=== PATIENT | female | born 1980 | race Caucasian/White ===

== ENCOUNTER 2019-04-30 05:39 | Inpatient (IN) | payer OTHER ==
[~2019-04-30] VITALS: Ht 152.4 cm; Wt 71.2 kg
[2019-04-30] MEDS ORDERED: DEXT 5%/LR + PITOCIN 20UNITS/L 1,000 ML IV ONE (06:39)
[2019-04-30] MEDS ORDERED: DEXT 5%/LR + PITOCIN 20UNITS/L 1,000 ML IV SCH (06:58)
[2019-04-30] MEDS ORDERED: GLYCERIN/WITCH HAZEL LEAF MEDICATED PAD TOP PRN (07:00)
[2019-04-30] MEDS ORDERED: BISACODYL 10MG SUPP PR PRN (07:00)
[2019-04-30] MEDS ORDERED: HEMORRHOIDAL SUPP PR PRN (07:00)
[2019-04-30] MEDS ORDERED: ACETAMINOPHEN WITH CODEINE 300/30MG TABLET PO PRN ×2 (07:00)
[2019-04-30] MEDS ORDERED: IBUPROFEN 400MG TABLET PO PRN (07:00)
[2019-04-30] MEDS ORDERED: IBUPROFEN 800MG TABLET PO PRN (07:00)
[2019-04-30 09:10] LABS: BASOPHILS % 0.6 % (0.0-2.0); EOSINOPHILS % 0.5 % (0.0-5.0); HEMOGLOBIN. 13.4 g/dL (12.0-16.0); MEAN CORPUSCULAR HEMOGLOBIN 31.8 pg (28.0-32.0); MEAN PLATELET VOLUME 10.9 fl (7.4-10.4); NEUTROPHILS % 77.9 % (40.0-76.0); PLATELET 140 x1000/uL (130-400); RED BLOOD CELL COUNT 4.22 mill/uL (4.2-5.4)
[2019-04-30 10:45] LABS: CLARITY URINE TURBID (CLEAR); COLOR URINE RED (YELLOW); KETONES URINE 1+ (NEGATIVE); LEUKOCYTE ESTERASE URINE 2+ (NEGATIVE); NITRITE URINE POSITIVE (NEGATIVE); OCCULT BLOOD URINE 3+ (NEGATIVE); PROTEIN URINE 2+ (NEGATIVE); SPECIFIC GRAVITY URINE 1.012 (1.005-1.030); UROBILINOGEN URINE 0.2 E.U./dL (0.2-1.0)
[2019-04-30 11:25] LABS: *AMPHETAMINES SCREEN URINE NEGATIVE (NEGATIVE); *BARBITURATES SCREEN URINE NEGATIVE (NEGATIVE); *BENZODIAZEPINES SCREEN URINE NEGATIVE (NEGATIVE); *COCAINE SCREEN URINE NEGATIVE (NEGATIVE); OPIATES URINE SCREEN NEGATIVE (NEGATIVE)
[2019-04-30 11:26] LABS: CANNABINOID URINE SCREEN NEGATIVE (NEGATIVE); PHENCYCLIDINE URINE SCREEN NEGATIVE (NEGATIVE)
[2019-04-30 11:30] VITALS: BP 109/55
[2019-04-30] MEDS: BENZOCAINE/LANOLIN/ALOE VERA SPRAY TOP PRN ×2 (12:44→21:59)
[2019-04-30] MEDS: LANOLIN OINT 7GM TUBE TOP PRN ×2 (12:44→22:00)
[2019-04-30 14:56] LABS: INR 0.9; PARTIAL THROMBOPLASTIN TIME 25.8 sec (23.4-31.0); PROTHROMBIN TIME 9.9 sec (9.6-11.0)
[2019-04-30 15:45] LABS: METHADONE URINE SCREEN NEGATIVE (NEGATIVE)
[2019-04-30 16:30] VITALS: BP 101/53
[2019-04-30 20:00] VITALS: BP 89/49
[2019-04-30] MEDS ORDERED: MEASLES,MUMPS&RUBELLA VACCINE 1 VIAL SUBCUT ONE (20:00)
[2019-04-30] MEDS: MAGNESIUM/ALUMINUM HYDROXIDE/SIMETHICONE 30ML UDC PO SCH (21:59)
[2019-04-30] MEDS: DOCUSATE SODIUM 100MG CAPSULE PO SCH (22:00)
[2019-04-30] MEDS: SIMETHICONE 80MG TABLET CHEW PO SCH (22:01)
[2019-05-01] VITALS: BP 92/44
[2019-05-01 04:00] VITALS: BP 96/45
[2019-05-01 07:01] LABS: BASOPHILS % 0.4 % (0.0-2.0); EOSINOPHILS % 1.1 % (0.0-5.0); HEMATOCRIT. 31.1 % (36.0-48.0); LYMPHOCYTES % 16.9 % (20.0-50.0); MEAN CORPUSCULAR HEMOGLOBIN 31.8 pg (28.0-32.0); MEAN CORPUSCULAR VOLUME 90.3 fL (81.0-99.0); MEAN PLATELET VOLUME 10.8 fl (7.4-10.4); NEUTROPHILS % 73.6 % (40.0-76.0); PLATELET 135 x1000/uL (130-400); RED BLOOD CELL COUNT 3.44 mill/uL (4.2-5.4); RED CELL DISTRIBUTION WIDTH 15.1 % (11.6-14.6)
[2019-05-01] MEDS ORDERED: FERROUS SULFATE 325MG TABLET PO SCH (07:30)
[2019-05-01 08:30] VITALS: BP 102/60
[2019-05-01 16:00] VITALS: BP 90/52
[2019-05-01] MEDS: PRENATAL VIT/FE FUMARATE/FA TABLET PO SCH (16:45)
[2019-05-01] MEDS: SIMETHICONE 80MG TABLET CHEW PO SCH ×2 (16:45→22:09)
[2019-05-01 20:00] VITALS: BP 107/57
[2019-05-01] MEDS: DOCUSATE SODIUM 100MG CAPSULE PO SCH (22:08)
[2019-05-01] MEDS: MAGNESIUM/ALUMINUM HYDROXIDE/SIMETHICONE 30ML UDC PO SCH (22:08)
[2019-05-02 04:00] VITALS: BP 95/45
[2019-05-02 07:30] VITALS: BP 107/52
[2019-05-02] MEDS: PRENATAL VIT/FE FUMARATE/FA TABLET PO SCH (10:48)
[2019-05-02] MEDS: SIMETHICONE 80MG TABLET CHEW PO SCH (10:50)
== END 2019-05-02 11:00 | disposition home or self-care (01) | DRG 807 ==
LOC: 8 EST LDRP 05:39 → 8 EST A/PP 11:47 → 8EST 11:50
PROVIDERS: ADMIT Obstetrics & Gynecology; ATTEND Obstetrics & Gynecology
PROC: 10E0XZZ Delivery of Products of Conception, External Approach (ICD-10-PCS; principal; 2019-04-30)
PROC: 0KQM0ZZ Repair Perineum Muscle, Open Approach (ICD-10-PCS; 2019-04-30)
DX: O48.0 Post-term pregnancy (principal); Z37.0 Single live birth; O70.1 Second degree perineal laceration during delivery; Z3A.40 40 weeks gestation of pregnancy
CPT/HCPCS: 36415; 80305; 81003; 82962; 85025; 86592; 86703; 86762; 86850; 86900; 87340; 90707; J2590